=== PATIENT | male | born 1980 | race Caucasian/White ===

== ENCOUNTER 2020-02-29 20:56 | Emergency (ER) | payer MEDICAID ==
[~2020-02-29] VITALS: Ht 182.9 cm; Wt 70.0 kg
[2020-02-29 20:58] VITALS: BP 118/80
--- NOTE | 2020-02-29 21:28 | NUR ---
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
--- NOTE | 2020-02-29 21:34 | NUR ---
THIS IS A 40Y M THAT COMES IN FOR CHEST PRESSURE/ ARM PIT PAIN. PT STS RECENTLY BEGAN USING A CRUTCH AND HAS DEVELOPED SORES AND SWELLING IN HIS L ARM PIT AREA. PT STS THIS HAS HAPPENED IN THE PAST AND RESOLVED ITSELF. PT CONNECTED TO ALL MONITORING VSS, NADN. PT RESTING ON VINOD NADN. NO NEEDS EXPRESSED.
[2020-02-29] MEDS ORDERED: OXYcodone/APAP 5/325MG TABLET PO ONE (22:00)
[2020-02-29] MEDS ORDERED: SULFAMETH./TRIMETHOPRIM DS 800MG/160MG TABLET PO ONE (22:00)
[2020-02-29] MEDS ORDERED: CEPHALEXIN 500 MG CAPSULE PO ONE (22:00)
[2020-02-29] MEDS ORDERED: LIDOCAINE 2%, 20ML SQ ONE (22:00)
[2020-02-29] MEDS ORDERED: CEPHALEXIN 500 MG CAPSULE ONE (22:01)
[2020-02-29] MEDS ORDERED: OXYcodone/APAP 5/325MG TABLET ONE (22:01)
[2020-02-29] MEDS ORDERED: LIDOCAINE-MPF 2% ,5ML ONE ×3 (22:01→22:41)
[2020-02-29] MEDS ORDERED: SULFAMETH./TRIMETHOPRIM DS 800MG/160MG TABLET ONE (22:01)
--- NOTE | 2020-02-29 22:14 | NUR ---
PT MEDICATED PER MAR
--- NOTE | 2020-02-29 22:37 | NUR ---
PA AT BEDSIDE FOR I&D
== END 2020-02-29 23:11 | disposition home or self-care (01) ==
LOC: ED 22:59
DX: L03.114 Cellulitis of left upper limb (principal); L02.412 Cutaneous abscess of left axilla; R94.31 Abnormal electrocardiogram [ECG] [EKG]
CPT/HCPCS: 10061; 93005; 99284

== ENCOUNTER 2020-03-02 19:26 | Emergency (ER) | payer MEDICAID ==
[~2020-03-02] VITALS: Ht 182.9 cm; Wt 69.0 kg
[2020-03-02 19:30] VITALS: BP 110/60
== END 2020-03-02 21:20 | disposition home or self-care (01) ==
LOC: ED 21:01
DX: Z48.01 Encounter for change or removal of surgical wound dressing (principal)
CPT/HCPCS: 99282

== ENCOUNTER 2020-09-16 12:16 | Emergency (ER) | payer MEDICAID ==
[~2020-09-16] VITALS: Ht 182.9 cm; Wt 75.0 kg
--- NOTE | 2020-09-16 12:56 | NUR ---
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 RAD CALLED, PT CURRENTLY IN RAD. TO GO TO ROOM 9 AFTER RAD/IMAGING COMPLETE
--- NOTE | 2020-09-16 13:12 | NUR ---
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
[2020-09-16] MEDS ORDERED: KETOROLAC 30 MG/1 ML ONE (13:42)
[2020-09-16] MEDS ORDERED: KETOROLAC 30 MG/1 ML IM ONE (14:00)
[2020-09-16 14:10] VITALS: BP 121/78
== END 2020-09-16 14:38 | disposition home or self-care (01) ==
LOC: ED 14:09
DX: T87.9 Unspecified complications of amputation stump (principal)
CPT/HCPCS: 73552; 96372; 99283; J1885